=== PATIENT | male | born 1965 | race Caucasian/White ===

== ENCOUNTER 2022-02-17 22:48 | Emergency (ER) | payer OTHER ==
[~2022-02-17] VITALS: Ht 175.3 cm; Wt 108.9 kg
[2022-02-18] MEDS ORDERED: CEPHALEXIN500 M1 PO (00:42)
== END 2022-02-18 01:14 | disposition home or self-care (01) ==
LOC: ED 22:48
DX: N49.2 Inflammatory disorders of scrotum (principal); E11.9 Type 2 diabetes mellitus without complications; I10 Essential (primary) hypertension; E78.5 Hyperlipidemia, unspecified; Z88.0 Allergy status to penicillin
CPT/HCPCS: 36415; 74176; 80053; 81001; 83605; 85025; 85610; 85730; 96365; 96368; 99284-25; J0692; J7030